=== PATIENT | female | born 1965 | race African-American/Black ===

== ENCOUNTER → 2016-11-22 | Emergency (ER) | payer BC ==
[~2016-11-22] MED LIST: FAMOTIDINE 20 MG/50 ML IVPB 50 ML IVPB ONE; MAG HYDROX/AL HYDROX/SIMETH 30 ML UNIT-DOSE CUP ONE; MAG HYDROX/AL HYDROX/SIMETH 30 ML UNIT-DOSE CUP PO ONE; SUCRALFATE 1 GM TABLET (FP) ONE; SUCRALFATE 1 GM/10 ML UNIT DOSE CUPS PO ONE
[2016-11-22 13:24] VITALS: BP 143/83; PULSE 63; TEMP 98.1; BMI 31.8
--- NOTE | 2016-11-22 14:44 | PDOC ---
History of Present Illness - General Chief Complaint: Chest Pain Stated Complaint: CHEST PAIN Time Seen by Provider: 11/22/16 14:07 History Source: Patient Exam Limitations: No Limitations - History of Present Illness Initial Comments: 11/22/16 14:41 Patient is a 50F with history of gastric reflux here today complaining of chest pain. The pain is located in the superior chest region, both left and right. The pain has been going on for the past 2-3 weeks. It's intermittent, but becoming more frequent the past couple of days. It's not brought on by activity and it's not relieved by rest. It's made worse by inspiration but not palpation. She denies nausea, vomiting, diaphoresis, fevers, chills and shortness of breath. Past History - Past Medical History Allergies/Adverse Reactions: Allergies Allergy/AdvReac Type Severity Reaction Status Date / Time No Known Allergies Allergy Verified 11/22/16 13:20 Home Medications: Ambulatory Orders Omeprazole 20 mg PO DAILY 11/22/16 GI Disorders: Yes (GERD) - Psycho/Social/Smoking Cessation Hx Anxiety: No Suicidal Ideation: No Smoking History: Never smoked Have you smoked in the past 12 months: No Information on smoking cessation initiated: No Hx Alcohol Use: No Drug/Substance Use Hx: No Substance Use Type: None Review of Systems - Review of Systems Constitutional: No: Chills, Fever HEENTM: No: Blurred Vision Respiratory: No: Orthopnea, Shortness of Breath Cardiac (ROS): Yes: Chest Pain ABD/GI: No: Constipated, Diarrhea, Nausea, Vomiting : No: Dysuria Neurological: Yes: Headache. No: Dizziness Endocrine: No: Excessive Sweating *Physical Exam - Vital Signs Last Vital Signs Temp Pulse Resp BP Pulse Ox 98.1 F 63 18 143/83 100 11/22/16 13:21 11/22/16 13:21 11/22/16 13:21 11/22/16 13:21 11/22/16 13:21 - Physical Exam Comments: 11/22/16 14:52 Gen: Well nourished, no acute distress HEENT: Normocephalic, atraumatic CV: RRR, no murmurs rubs or gallops Lungs: Normal work of breathing, clear to auscultation bilaterally Abd: Soft nontender, normal bowel sounds Ext: 2+ pulses in all extremities, no edema Neuro: Alert, oriented, no gross neuro deficits, CN2-12 intact Heart Score/ECG Review - History History: Slightly suspicious - Electrocardiogram EKG: Significant ST-depression - Age Age: 45-65 - Risk Factors Risk Factors Heart Score: Yes Hx Obesity Based on the list above the patient has:: 1-2 risk factors #1 ECG reviewed & interpreted by me at: 14:54 11/22/16 14:54 Normal sinus rhythm, normal axis, T-wave inversions in II and III. No prior EKGs to compare to. ED Treatment Course - LABORATORY CBC & Chemistry Diagram: 11/22/16 14:49 11/22/16 17:20 - ADDITIONAL ORDERS Additional order review: Laboratory Results 11/22/16 11/22/16 11/22/16 17:20 14:49 14:49 INR 1.03 Sodium 142 Cancelled Potassium 4.0 Cancelled Chloride 105 Cancelled Carbon Dioxide 28 Cancelled Anion Gap 9 Cancelled BUN 11 Cancelled Creatinine 0.7 Cancelled Creat Clearance w eGFR > 60 Cancelled Random Glucose 85 Cancelled Calcium 9.3 Cancelled Magnesium Cancelled Total Bilirubin 0.8 Cancelled AST 20 Cancelled ALT 22 Cancelled Alkaline Phosphatase 122 H Cancelled Creatine Kinase 181 Cancelled Creatine Kinase Index < 0.6 CK-MB (CK-2) < 1.000 Troponin I < 0.02 Cancelled Total Protein 7.1 Cancelled Albumin 4.1 Cancelled 11/22/16 14:49 RBC 4.41 MCV 86.5 MCHC 31.8 L RDW 14.2 MPV 10.7 Neutrophils % 47.1 Lymphocytes % 41.4 H Monocytes % 7.0 Eosinophils % 3.5 Basophils % 1.0 - RADIOLOGY Radiology Studies Ordered: Category Date Time Status CHEST PA & LAT [RAD] Stat Radiology 11/22/16 14:41 Taken - Medications Given in the ED: ED Medications Discontinued Medications Generic Name Dose Route Start Last Admin Trade Name Freq PRN Reason Stop Dose Admin Al Hydroxide/Mg Hydroxide 30 ml 11/22/16 14:49 11/22/16 16:00 Mylanta Oral Suspension - PO 11/22/16 14:50 30 ml ONCE ONE Administration Famotidine/Sodium Chloride 50 mls @ 100 mls/hr 11/22/16 14:49 11/22/16 16:00 Pepcid 20 Mg Premixed Ivpb - IVPB 11/22/16 15:18 100 mls/hr ONCE ONE Administration Sucralfate 1 gm 11/22/16 14:50 11/22/16 16:00 Carafate Oral Suspension - PO 11/22/16 14:51 1 gm BID ONE Administration Medical Decision Making - Medical Decision Making 11/22/16 14:55 Patient is a 50F with history of gastric reflux here today complaining of chest pain. Vital signs normal and stable. Differential diagnosis includes: ACS, unstable angina, angina, gastric reflux and others. History sounds atypical, but EKG shows concerning T-wave inversions in II and III. Will order CBC, CMP, CXR, and Trop. Will treat with GI cocktail to see if symptoms improve. 11/22/16 19:22 Symptoms improved with GI cocktail. Second trop pending. Signed out to Dr Puckett to follow up troponin and likely discharge. *DC/Admit/Observation/Transfer Diagnosis at time of Disposition: Chest pain Qualifiers: Chest pain type: unspecified Qualified Code(s): R07.9 - Chest pain, unspecified - Attestations Physician Attestion: 11/22/16 19:23 I, Dr. Claude Olsen, attest that this document has been prepared under my direction and personally reviewed by me in its entirety. I further attest, that it accurately reflects all work, treatment, procedures and medical decision -making performed by me.
[2016-11-22 16:16] LABS: EOSINOPHIL 3.5 % (0-4.5); MCH 27.5 pg (25.7-33.7); MCHC 31.8 g/dl (32.0-36.0); MEAN CELL VOLUME 86.5 fl (80-96); MEAN PLT VOLUME 10.7 fl (7.5-11.1); NEUTROPHILS 47.1 % (42.8-82.8); PLATELET COUNT 223 K/MM3 (134-434); RDW 14.2 % (11.6-15.6); WHITE BLOOD COUNT 6.5 K/mm3 (4.0-10.0)
[2016-11-22 16:28] LABS: INR 1.03 (0.82-1.09); PROTHROMBIN TIME (PATIENT) 11.3 SEC (9.98-11.88)
--- NOTE | 2016-11-22 17:01 | PDOC ---
Attending Attestation - Resident Resident Name: Claude Olsen - ED Attending Attestation I have performed the following: I have examined & evaluated the patient, The case was reviewed & discussed with the resident, I agree w/resident's findings & plan, Exceptions are as noted - HPI HPI: 11/22/16 16:56 50-year-old female with history of acid reflux presents with chest discomfort for 3 weeks. Patient has been coming in several times a day of 1 minute chest discomforts with no radiation or, diaphoresis, short of breath. There is no exertional components or nausea or vomiting or diaphoresis. States that the pain comes and goes. Patient has been ignoring and thought it was gas. Patient' s family history is consistent with a grandmother has cardiac disease in her 80s. Came in to be evaluated. - Physicial Exam PE: 11/22/16 16:59 GENERAL: Awake, alert, and fully oriented, in no acute distress. HEAD: No signs of trauma EYES: PERRLA, EOMI, sclera anicteric, conjunctiva clear ENT: Auricles normal inspection, hearing grossly normal, nares patent, oropharynx clear without exudates. NECK: Normal ROM, supple, no lymphadenopathy, JVD, or masses LUNGS: Breath sounds equal, clear to auscultation bilaterally. No wheezes, and no crackles HEART: Regular rate and rhythm, normal S1 and S2, no murmurs, rubs or gallops ABDOMEN: Soft, nontender, normoactive bowel sounds. No guarding, no rebound. No masses EXTREMITIES: Normal range of motion, no edema. No clubbing or cyanosis. No cords, erythema, or tenderness NEUROLOGICAL: Cranial nerves II through XII grossly intact. Normal speech, normal gait SKIN: Warm, Dry, normal turgor, no rashes or lesions noted. - Medical Decision Making 11/22/16 17:01 The patient's chest pain is very atypical and I suspect unlikely to be acute coronary syndrome at this time. The patient does have an EKG that is changed compared to prior with new T-wave inversions. However, given these findings, we' ll obtain to troponins. We'll consult cardiology for rapid outpatient stress test if they are agreeable. We'll trial GERD medications and reassess. Heart Score/ECG Review - History History: Slightly suspicious - Electrocardiogram EKG: Non specific repolarization disturbance - Age Age: 45-65 - Risk Factors Risk Factors Heart Score: Yes Positive family hx of cardiac disease Based on the list above the patient has:: 1-2 risk factors #1 ECG reviewed & interpreted by me at: 13:35 11/22/16 17:00 NSR 61, LVH, TWI III, avF, TWI V2-V3, Q wave V1-V2, T wave flat V4-V6, QTC 446 msec, no std/nick
[2016-11-22 18:06] LABS: ALBUMIN 4.1 g/dl (3.4-5.0); ANION GAP 9 (8-16); CALCIUM 9.3 mg/dL (8.5-10.1); CO2 28 mmol/L (21-32); CREATININE 0.7 mg/dL (0.55-1.02); GLUCOSE,RANDOM 85 mg/dL (74-106); SGOT/AST 20 U/L (15-37); SGPT/ALT 22 U/L (12-78)
[2016-11-22 18:11] LABS: ALK PHOS 122 U/L (45-117); BILIRUBIN,TOTAL 0.8 mg/dL (0.2-1.0); TOT PROT 7.1 g/dl (6.4-8.2); TROPONIN I < 0.02 ng/ml (0.00-0.05)
--- NOTE | 2016-11-22 19:38 | PDOC ---
*Physical Exam - Vital Signs Last Vital Signs Temp Pulse Resp BP Pulse Ox 98.1 F 63 18 143/83 100 11/22/16 13:21 11/22/16 13:21 11/22/16 13:21 11/22/16 13:21 11/22/16 13:21 <Mayur Kam - Last Filed: 11/22/16 21:18> - Vital Signs Last Vital Signs Temp Pulse Resp BP Pulse Ox 98.1 F 63 18 143/83 100 11/22/16 13:21 11/22/16 13:21 11/22/16 13:21 11/22/16 13:21 11/22/16 13:21 - Physical Exam Comments: 11/22/16 19:32 GENERAL: Awake, alert, and fully oriented, in no acute distress HEAD: No signs of trauma, normocephalic, atraumatic EYES: PERRLA, EOMI, sclera anicteric, conjunctiva clear ENT: Auricles normal inspection, hearing grossly normal, nares patent, oropharynx clear without exudates. Moist mucosa NECK: Normal ROM, supple, no lymphadenopathy, JVD, or masses LUNGS: No distress, speaks full sentences, clear to auscultation bilaterally HEART: Regular rate and rhythm, normal S1 and S2, no murmurs, rubs or gallops, peripheral pulses normal and equal bilaterally. ABDOMEN: Soft, nontender, normoactive bowel sounds. No guarding, no rebound. No masses EXTREMITIES: Normal inspection, Normal range of motion, no edema. No clubbing or cyanosis. NEUROLOGICAL: Cranial nerves II through XII grossly intact. Normal speech, normal gait, no focal sensorimotor deficits SKIN: Warm, Dry, normal turgor, no rashes or lesions noted. <Yaw Puckett - Last Filed: 11/22/16 21:22> ED Treatment Course - LABORATORY CBC & Chemistry Diagram: 11/22/16 14:49 11/22/16 17:20 - ADDITIONAL ORDERS Additional order review: Laboratory Results 11/22/16 11/22/16 11/22/16 20:09 17:20 14:49 INR Sodium 142 Cancelled Potassium 4.0 Cancelled Chloride 105 Cancelled Carbon Dioxide 28 Cancelled Anion Gap 9 Cancelled BUN 11 Cancelled Creatinine 0.7 Cancelled Creat Clearance w eGFR > 60 Cancelled Random Glucose 85 Cancelled Calcium 9.3 Cancelled Magnesium Cancelled Total Bilirubin 0.8 Cancelled AST 20 Cancelled ALT 22 Cancelled Alkaline Phosphatase 122 H Cancelled Creatine Kinase 185 181 Cancelled Creatine Kinase Index < 0.5 < 0.6 CK-MB (CK-2) < 1.000 < 1.000 Troponin I < 0.02 < 0.02 Cancelled Total Protein 7.1 Cancelled Albumin 4.1 Cancelled 11/22/16 14:49 INR 1.03 Sodium Potassium Chloride Carbon Dioxide Anion Gap BUN Creatinine Creat Clearance w eGFR Random Glucose Calcium Magnesium Total Bilirubin AST ALT Alkaline Phosphatase Creatine Kinase Creatine Kinase Index CK-MB (CK-2) Troponin I Total Protein Albumin 11/22/16 14:49 RBC 4.41 MCV 86.5 MCHC 31.8 L RDW 14.2 MPV 10.7 Neutrophils % 47.1 Lymphocytes % 41.4 H Monocytes % 7.0 Eosinophils % 3.5 Basophils % 1.0 - Medications Given in the ED: ED Medications Discontinued Medications Generic Name Dose Route Start Last Admin Trade Name Jamarcusq PRN Reason Stop Dose Admin Al Hydroxide/Mg Hydroxide 30 ml 11/22/16 14:49 11/22/16 16:00 Mylanta Oral Suspension - PO 11/22/16 14:50 30 ml ONCE ONE Administration Famotidine/Sodium Chloride 50 mls @ 100 mls/hr 11/22/16 14:49 11/22/16 16:00 Pepcid 20 Mg Premixed Ivpb - IVPB 11/22/16 15:18 100 mls/hr ONCE ONE Administration Sucralfate 1 gm 11/22/16 14:50 11/22/16 16:00 Carafate Oral Suspension - PO 11/22/16 14:51 1 gm BID ONE Administration <Mayur Kam - Last Filed: 11/22/16 21:18> - LABORATORY CBC & Chemistry Diagram: 11/22/16 14:49 11/22/16 17:20 - ADDITIONAL ORDERS Additional order review: Laboratory Results 11/22/16 11/22/16 11/22/16 17:20 14:49 14:49 INR 1.03 Sodium 142 Cancelled Potassium 4.0 Cancelled Chloride 105 Cancelled Carbon Dioxide 28 Cancelled Anion Gap 9 Cancelled BUN 11 Cancelled Creatinine 0.7 Cancelled Creat Clearance w eGFR > 60 Cancelled Random Glucose 85 Cancelled Calcium 9.3 Cancelled Magnesium Cancelled Total Bilirubin 0.8 Cancelled AST 20 Cancelled ALT 22 Cancelled Alkaline Phosphatase 122 H Cancelled Creatine Kinase 181 Cancelled Creatine Kinase Index < 0.6 CK-MB (CK-2) < 1.000 Troponin I < 0.02 Cancelled Total Protein 7.1 Cancelled Albumin 4.1 Cancelled 11/22/16 14:49 RBC 4.41 MCV 86.5 MCHC 31.8 L RDW 14.2 MPV 10.7 Neutrophils % 47.1 Lymphocytes % 41.4 H Monocytes % 7.0 Eosinophils % 3.5 Basophils % 1.0 - Medications Given in the ED: ED Medications Discontinued Medications Generic Name Dose Route Start Last Admin Trade Name Freq PRN Reason Stop Dose Admin Al Hydroxide/Mg Hydroxide 30 ml 11/22/16 14:49 11/22/16 16:00 Mylanta Oral Suspension - PO 11/22/16 14:50 30 ml ONCE ONE Administration Famotidine/Sodium Chloride 50 mls @ 100 mls/hr 11/22/16 14:49 11/22/16 16:00 Pepcid 20 Mg Premixed Ivpb - IVPB 11/22/16 15:18 100 mls/hr ONCE ONE Administration Sucralfate 1 gm 11/22/16 14:50 11/22/16 16:00 Carafate Oral Suspension - PO 11/22/16 14:51 1 gm BID ONE Administration <Yaw Puckett - Last Filed: 11/22/16 21:22> Progress Note - Progress Note Progress Note: 50 yo female with h/o GERD who presents following atypical susbsternal chest pain. Received check out from previous resident provider. Patient receiving ACS workup. Currently asymptomatic, with h/o previous abnormal EKG (2016) revealing T wave inversion in inferior leads. Currently on 20 mg Omeprazole QD. No h/o prior ACS/ RI. <Yaw Puckett - Last Filed: 11/22/16 21:22> Medical Decision Making - Medical Decision Making 11/22/16 21:18 Discussed results and need for STRESS TEST and CARDIOLOGY CONSULTATION as OUTPATIENT with patient. She understands and will call her primary doctor for a referral in the morning. <Mayur Kam - Last Filed: 11/22/16 21:18> - Medical Decision Making 11/22/16 19:34 50 yo female with h/o reflux who presents with atypical chest pain. Hemodynamically stable and absent abnormal acute changes on EKG or abnormal physical exam. Previous EKG in 2016 revealed T wave inversion in inferior leads. Patient asymptomatic and ED course consist of r/o angina/ACS/RI. Patient has receivwd Ranitidine, Sulcralfate, and Mag Hydrox. Recieved check out from Dr. Olsen. 11/22/16 19:37 CBC, CMP, and Troponin unremarkable. CXR- 11/22/16 19:38 Second Troponin - Negative <Yaw Puckett - Last Filed: 11/22/16 21:22> *DC/Admit/Observation/Transfer - Discharge Dispostion Admit: No <Mayur Kam - Last Filed: 11/22/16 21:18> - Attestations Physician Attestion: 11/22/16 21:21 I, Dr. Yaw Puckett, attest that this document has been prepared under my direction and personally reviewed by me in its entirety. I further attest, that it accurately reflects all work, treatment, procedures and medical decision -making performed by me. <Yaw Puckett - Last Filed: 11/22/16 21:22> Diagnosis at time of Disposition: Chest pain Qualifiers: Chest pain type: unspecified Qualified Code(s): R07.9 - Chest pain, unspecified GE reflux Qualifiers: Esophagitis presence: esophagitis presence not specified Qualified Code(s): K21.9 - Gastro-esophageal reflux disease without esophagitis - Discharge Dispostion Disposition: HOME Condition at time of disposition: Good - Referrals Referrals: Bridger Conteh MD [Staff Physician] - - Patient Instructions Printed Discharge Instructions: DI for Atypical Chest Pain, Heartburn -- Overview, DI for Gastroesophageal Reflux Disease (GERD) Additional Instructions: Mrs Javed- I am so sorry this took so long today..... It is important you follow up with your Primary Doctor so they can order a stress test for you. Also start your Omperazole (Prilosec)R Tomorrow. Return to us if any problems. Best- Dr. Mayur Kam
[2016-11-22 20:49] LABS: TROPONIN I < 0.02 ng/ml (0.00-0.05)
--- NOTE | 2016-11-24 12:10 | EKG ---
Test Reason : Blood Pressure : / mmHG Vent. Rate : 061 BPM Atrial Rate : 061 BPM P-R Int : 164 ms QRS Dur : 088 ms QT Int : 444 ms P-R-T Axes : 048 001 -14 degrees QTc Int : 446 ms NORMAL SINUS RHYTHM MINIMAL VOLTAGE CRITERIA FOR LVH, MAY BE NORMAL VARIANT SEPTAL INFARCT , AGE UNDETERMINED ABNORMAL ECG NO PREVIOUS ECGS AVAILABLE Confirmed by KEITH PAULINO MD ([id number]) on 11/24/2016 12:09:42 PM Referred By: Confirmed By:KEITH PAULINO MD
== END | disposition home or self-care (01) ==
LOC: JER 13:18
PROC: 3E033GC Introduction of Other Therapeutic Substance into Peripheral Vein, Percutaneous Approach (ICD-10-PCS; principal; 2016-11-22)
DX: R07.89 Other chest pain (principal); K21.9 Gastro-esophageal reflux disease without esophagitis
CPT/HCPCS: 36415; 71020-TC; 80053; 82550; 82553; 84484; 85025; 85610; 93005; 93010; 99281-25

== ENCOUNTER 2020-03-28 09:47 | Inpatient (IN) | payer BC ==
[2020-03-28] MEDS ORDERED: FAMOTIDINE 20 MG TABLET PO ONE (11:14)
[2020-03-28] MEDS ORDERED: MAG HYDROX/AL HYDROX/SIMETH -MYLANTA- ORAL SUSPENSION PO ONE (11:14)
[2020-03-28] MEDS ORDERED: SODIUM CHLORIDE 0.9% 500 ML INFUS.BAG IV ONE ×2 (11:14→14:25)
[2020-03-28] MEDS ORDERED: LIDOCAINE VISCOUS 2% ORAL/TOP 20 ML UNIT-DOSE CUP MM ONE (11:14)
[2020-03-28] MEDS ORDERED: LIDOCAINE VISCOUS 2% ORAL/TOP 20 ML UNIT-DOSE CUP ONE (12:14)
[2020-03-28] MEDS ORDERED: FAMOTIDINE 20 MG TABLET ONE (12:15)
[2020-03-28] MEDS ORDERED: MAG HYDROX/AL HYDROX/SIMETH 30 ML UNIT-DOSE CUP ONE (12:15)
[2020-03-28 12:40] LABS: BASO % 0.4 % (0-2.0); EOS % 0.1 % (0-4.5); HEMATOCRIT 39.7 % (32.4-45.2); HEMOGLOBIN 12.7 GM/dL (10.7-15.3); LYMPH % 7.8 % (8-40); MCH 27.7 pg (25.7-33.7); MEAN CELL VOLUME 86.6 fl (80-96); MEAN PLT VOLUME 10.8 fl (7.5-11.1); MONO % 5.4 % (3.8-10.2); NEUT % 86.3 % (42.8-82.8); PLATELET COUNT 266 K/MM3 (134-434); RBC 4.59 M/mm3 (3.60-5.2); RDW 14.6 % (11.6-15.6); WHITE BLOOD COUNT 10.2 K/mm3 (4.0-10.0)
[2020-03-28 12:45] LABS: INR 0.99 (0.83-1.09); PROTHROMBIN TIME (PATIENT) 12.2 SEC (9.7-13.0)
[2020-03-28 12:48] LABS: ACTIVATED PTT 29.6 SECONDS (25.2-36.5)
[2020-03-28 12:57] LABS: CHLORIDE 111 mmol/L (98-107); SODIUM 141 mmol/L (136-145)
[2020-03-28 13:00] LABS: ALBUMIN 4.2 g/dl (3.4-5.0); BLOOD UREA NITROGEN 13.3 mg/dL (7-18); CALCIUM 9.2 mg/dL (8.5-10.1); CO2 25 mmol/L (21-32); GLUCOSE,RANDOM 128 mg/dL (74-106); LIPASE 128 U/L (73-393)
[2020-03-28 13:03] LABS: CREATININE 0.9 mg/dL (0.55-1.3); SGOT/AST 91 U/L (15-37)
[2020-03-28 13:05] LABS: BILIRUBIN,TOTAL 0.4 mg/dL (0.2-1); TOT PROT 8.3 g/dl (6.4-8.2)
[2020-03-28 13:06] LABS: ALK PHOS 123 U/L (45-117)
[2020-03-28 13:22] LABS: URINE APPEARANCE CLOUDY; URINE BILIRUBIN NEGATIVE (NEGATIVE); URINE COLOR YELLOW; URINE GLUCOSE (UA) NEGATIVE (NEGATIVE); URINE KETONE NEGATIVE (NEGATIVE); URINE LEUK ESTERASE NEGATIVE (NEGATIVE); URINE NITRITE NEGATIVE (NEGATIVE); URINE PROTEIN NEGATIVE (NEGATIVE); URINE UROBILINOGEN 0.2 mg/dL (0.2-1.0)
[2020-03-28 13:24] LABS: ANION GAP 5 MMOL/L (8-16); SGPT/ALT 48 U/L (13-61)
[2020-03-28 13:29] LABS: ANISOCYTOSIS 0; MACROCYTOSIS 0; PLATELET ESTIMATE NORMAL
[2020-03-28 13:31] LABS: POTASSIUM 7.8 mmol/L (3.5-5.1)
[2020-03-28] MEDS ORDERED: ACETAMINOPHEN 1000 MG/100 ML VIAL (NON FORMULARY) IVPB ONE (14:21)
[2020-03-28] MEDS ORDERED: ACETAMINOPHEN INJECTION 100 ML IVPB ONE ×3 (14:49→21:15)
[2020-03-28] MEDS ORDERED: DEXTROSE 5%-0.45% SALINE 1,000 ML IV SCH (17:30)
[2020-03-28] MEDS: ACETAMINOPHEN 1000 MG/100 ML VIAL (NON FORMULARY) IVPB PRN (19:32)
[2020-03-28] MEDS ORDERED: CEFTRIAXONE 1 GM/50 ML BAG ONE (21:15)
[2020-03-28] MEDS: SODIUM CHLORIDE 1,000 ML IV SCH (21:32)
[2020-03-28] MEDS: CEFTRIAXONE 1 GM in DEXTROSE 5%-WATER - 50 ML IVPB SCH (21:32)
[2020-03-28 21:47] LABS: POTASSIUM 4.1 mmol/L (3.5-5.1)
[2020-03-28 21:48] LABS: CALCIUM 8.8 mg/dL (8.5-10.1)
[2020-03-28 21:49] LABS: ALBUMIN 4.1 g/dl (3.4-5.0); BLOOD UREA NITROGEN 8.8 mg/dL (7-18)
[2020-03-28 21:52] LABS: CREATININE 0.6 mg/dL (0.55-1.3)
[2020-03-28 21:53] LABS: BILIRUBIN,TOTAL 0.4 mg/dL (0.2-1); TOT PROT 7.3 g/dl (6.4-8.2)
[2020-03-29] MEDS: ACETAMINOPHEN 1000 MG/100 ML VIAL (NON FORMULARY) IVPB PRN ×2 (02:22→11:47)
[2020-03-29 03:45] VITALS: BMI 38.1
[2020-03-29 08:23] LABS: BASO % 0.4 % (0-2.0); EOS % 2.1 % (0-4.5); HEMATOCRIT 32.8 % (32.4-45.2); HEMOGLOBIN 10.6 GM/dL (10.7-15.3); LYMPH % 23.7 % (8-40); MCH 28.2 pg (25.7-33.7); MCHC 32.4 g/dl (32.0-36.0); MEAN CELL VOLUME 87.1 fl (80-96); MEAN PLT VOLUME 10.9 fl (7.5-11.1); MONO % 9.9 % (3.8-10.2); NEUT % 63.9 % (42.8-82.8); PLATELET COUNT 203 K/MM3 (134-434); RBC 3.77 M/mm3 (3.60-5.2); RDW 14.4 % (11.6-15.6)
[2020-03-29 08:36] LABS: CHLORIDE 114 mmol/L (98-107); POTASSIUM 3.9 mmol/L (3.5-5.1); SODIUM 144 mmol/L (136-145)
[2020-03-29 08:39] LABS: ALBUMIN 3.3 g/dl (3.4-5.0); BLOOD UREA NITROGEN 7.2 mg/dL (7-18)
[2020-03-29 08:40] LABS: CALCIUM 8.1 mg/dL (8.5-10.1); MAGNESIUM 2.2 mg/dL (1.8-2.4)
[2020-03-29 08:41] LABS: ANION GAP 4 MMOL/L (8-16); CO2 26 mmol/L (21-32); GLUCOSE,RANDOM 134 mg/dL (74-106)
[2020-03-29 08:42] LABS: CREATININE 0.7 mg/dL (0.55-1.3); SGOT/AST 18 U/L (15-37); SGPT/ALT 29 U/L (13-61)
[2020-03-29 08:43] LABS: PHOSPHOROUS 3.1 mg/dL (2.5-4.9)
[2020-03-29 08:44] LABS: BILIRUBIN,TOTAL 0.4 mg/dL (0.2-1); TOT PROT 6.1 g/dl (6.4-8.2)
[2020-03-29 08:45] LABS: ALK PHOS 97 U/L (45-117)
[2020-03-29] MEDS: PANTOPRAZOLE SODIUM 40 MG VIAL IVPUSH SCH (09:06)
[2020-03-29] MEDS: SODIUM CHLORIDE 1,000 ML IV SCH (09:06)
[2020-03-29] MEDS ORDERED: cefTRIAXone SODIUM 1 GM VIAL ONE (10:53)
[2020-03-29] MEDS ORDERED: DEXTROSE 5%-WATER - 50 ML IVPB ONE (10:53)
[2020-03-29] MEDS: CEFTRIAXONE 1 GM in DEXTROSE 5%-WATER - 50 ML IVPB SCH (10:54)
[2020-03-29 19:00] LABS: HEMATOCRIT 35.9 % (32.4-45.2); HEMOGLOBIN 11.4 GM/dL (10.7-15.3); MCH 28.5 pg (25.7-33.7); MCHC 31.8 g/dl (32.0-36.0); MEAN CELL VOLUME 89.5 fl (80-96); MEAN PLT VOLUME 10.9 fl (7.5-11.1); PLATELET COUNT 196 K/MM3 (134-434); RBC 4.01 M/mm3 (3.60-5.2); RDW 14.6 % (11.6-15.6); WHITE BLOOD COUNT 8.5 K/mm3 (4.0-10.0)
[2020-03-30] MEDS: ACETAMINOPHEN 1000 MG/100 ML VIAL (NON FORMULARY) IVPB PRN ×2 (00:03→07:49)
[2020-03-30] MEDS: SODIUM CHLORIDE 1,000 ML IV SCH ×2 (00:08→07:50)
[2020-03-30 07:04] LABS: HEMATOCRIT 31.8 % (32.4-45.2); HEMOGLOBIN 10.1 GM/dL (10.7-15.3); MCH 27.7 pg (25.7-33.7); MCHC 31.8 g/dl (32.0-36.0); MEAN CELL VOLUME 87.3 fl (80-96); MEAN PLT VOLUME 10.2 fl (7.5-11.1); PLATELET COUNT 198 K/MM3 (134-434); RBC 3.64 M/mm3 (3.60-5.2)
[2020-03-30 08:05] LABS: POTASSIUM 3.8 mmol/L (3.5-5.1)
[2020-03-30 08:35] LABS: ALBUMIN 3.3 g/dl (3.4-5.0); CALCIUM 8.1 mg/dL (8.5-10.1); CREATININE 0.7 mg/dL (0.55-1.3); MAGNESIUM 2.2 mg/dL (1.8-2.4)
[2020-03-30 08:39] LABS: BILIRUBIN,TOTAL 0.4 mg/dL (0.2-1); PHOSPHOROUS 3.4 mg/dL (2.5-4.9); TOT PROT 5.8 g/dl (6.4-8.2)
[2020-03-30] MEDS: PANTOPRAZOLE SODIUM 40 MG VIAL IVPUSH SCH (09:11)
[2020-03-30] MEDS ORDERED: cefTRIAXone SODIUM 1 GM VIAL ONE (10:22)
[2020-03-30] MEDS ORDERED: DEXTROSE 5%-WATER - 50 ML IVPB ONE (10:22)
[2020-03-30] MEDS: CEFTRIAXONE 1 GM in DEXTROSE 5%-WATER - 50 ML IVPB SCH (10:24)
[2020-03-30] MEDS ORDERED: SODIUM CHLORIDE 0.45% 1,000 ML IV SCH (16:15)
[2020-03-30] MEDS ORDERED: ACETAMINOPHEN 500 MG TABLET (FP) PO PRN (21:52)
[2020-03-31 08:28] LABS: POTASSIUM 3.9 mmol/L (3.5-5.1)
[2020-03-31 08:31] LABS: CALCIUM 8.2 mg/dL (8.5-10.1)
[2020-03-31 08:32] LABS: BLOOD UREA NITROGEN 6.4 mg/dL (7-18)
[2020-03-31 08:35] LABS: CREATININE 0.7 mg/dL (0.55-1.3)
[2020-03-31] MEDS: PANTOPRAZOLE SODIUM 40 MG VIAL IVPUSH SCH (11:06)
[2020-03-31] MEDS ORDERED: cefTRIAXone SODIUM 1 GM VIAL ONE (12:02)
[2020-03-31] MEDS ORDERED: DEXTROSE 5%-WATER - 50 ML IVPB ONE (12:03)
[2020-03-31] MEDS: CEFTRIAXONE 1 GM in DEXTROSE 5%-WATER - 50 ML IVPB SCH (12:42)
[2020-03-31 15:34] VITALS: BP 150/79; PULSE 64; TEMP 98.8
== END 2020-03-31 16:58 | disposition home health service (06) | DRG 392 ==
LOC: JER 09:47 → JERBED 15:58 → J8W 22:23
PROVIDERS: ATTEND Internal Medicine
DX: A09 Infectious gastroenteritis and colitis, unspecified (principal); K92.1 Melena; K21.9 Gastro-esophageal reflux disease without esophagitis; K76.0 Fatty (change of) liver, not elsewhere classified; R82.71 Bacteriuria; I10 Essential (primary) hypertension; R16.0 Hepatomegaly, not elsewhere classified; E66.9 Obesity, unspecified; Z68.38 Body mass index [BMI] 38.0-38.9, adult; Z79.1 Long term (current) use of non-steroidal anti-inflammatories (NSAID)
CPT/HCPCS: 36415; 71045-TC-FY; 74177-TC; 80048; 80053; 80061; 81003; 82272; 82550; 82553; 83036; 83605; 83690; 83721; 83735; 84100; 84443; 84484; 85025; 85027; 85610; 85730; 87045; 87046; 87077; 87086; 87177; 87205; 87209; 87324; 87449; 93005; 93010; 93306-TC; 97116-GP; 99285-25; C9803; J0131; Q9967; U0003

== ENCOUNTER 2021-05-09 06:09 | Emergency (ER) | payer BC ==
[2021-05-09 06:41] VITALS: BP 139/52; PULSE 58; TEMP 97.5; BMI 36.2
[2021-05-09] MEDS ORDERED: KETOROLAC TROMETHAMINE 30 MG/1 ML VIAL IM ONE (07:31)
[2021-05-09] MEDS ORDERED: METHOCARBAMOL 500 MG TABLET PO ONE (07:32)
[2021-05-09] MEDS ORDERED: LIDOCAINE 5% TOPICAL PATCH TP ONE (07:32)
[2021-05-09] MEDS ORDERED: METHOCARBAMOL 500 MG TABLET ONE (07:35)
[2021-05-09] MEDS ORDERED: LIDOCAINE 5% TOPICAL PATCH ONE (07:36)
[2021-05-09] MEDS ORDERED: KETOROLAC TROMETHAMINE 30 MG/1 ML VIAL ONE (07:36)
[2021-05-09] MEDS ORDERED: LIDOCAINE PATCH REMOVAL MC SCH (22:00)
== END 2021-05-09 09:15 | disposition home or self-care (01) ==
LOC: JER 06:09
PROC: 3E0233Z Introduction of Anti-inflammatory into Muscle, Percutaneous Approach (ICD-10-PCS; principal; 2021-05-09)
DX: M54.41 Lumbago with sciatica, right side (principal)
CPT/HCPCS: 99283-25

== ENCOUNTER 2021-09-16 09:28 | Day surgery (SDC) | payer BC ==
[2021-09-16 10:04] VITALS: BMI 35.8
[2021-09-16] MEDS ORDERED: PROPOFOL 20 ML ONE ×3 (11:28)
[2021-09-16 13:04] VITALS: TEMP 98.2
[2021-09-16 13:08] VITALS: BP 136/69; PULSE 66
== END 2021-09-16 13:05 | disposition home or self-care (01) ==
LOC: FASU-ENDO 09:28
PROVIDERS: ATTEND Internal Medicine Gastroenterology
PROC: 0DB68ZX Excision of Stomach, Via Natural or Artificial Opening Endoscopic, Diagnostic (ICD-10-PCS; 2021-09-16)
PROC: 0DB48ZX Excision of Esophagogastric Junction, Via Natural or Artificial Opening Endoscopic, Diagnostic (ICD-10-PCS; 2021-09-16)
PROC: 0DB98ZX Excision of Duodenum, Via Natural or Artificial Opening Endoscopic, Diagnostic (ICD-10-PCS; principal; 2021-09-16 11:48)
DX: K29.50 Unspecified chronic gastritis without bleeding (principal); K21.00 Gastro-esophageal reflux disease with esophagitis, without bleeding; R10.13 Epigastric pain
CPT/HCPCS: 88305-TC; 88342-TC

== ENCOUNTER 2022-01-29 02:53 | Emergency (ER) | payer BC ==
[2022-01-29 03:24] VITALS: RESP 20; BMI 36.6
[2022-01-29] MEDS ORDERED: ACETAMINOPHEN 1000 MG/100 ML BAG IVPB ONE (04:33)
[2022-01-29] MEDS ORDERED: SODIUM CHLORIDE 0.9% 500 ML INFUS.BAG IV ONE (04:33)
[2022-01-29] MEDS ORDERED: ACETAMINOPHEN INJECTION 100 ML IVPB ONE (04:34)
[2022-01-29 06:32] LABS: BASO % 0.6 % (0-2.0); EOS % 2.5 % (0-4.5); HEMATOCRIT 37.9 % (32.4-45.2); HEMOGLOBIN 12.3 GM/dL (10.7-15.3); LYMPH % 20.3 % (8-40); MCH 28.5 pg (25.7-33.7); MCHC 32.6 g/dl (32.0-36.0); MEAN CELL VOLUME 87.3 fl (80-96); MEAN PLT VOLUME 9.9 fl (7.5-11.1); MONO % 7.7 % (3.8-10.2); NEUT % 68.9 % (42.8-82.8); PLATELET COUNT 264 10^3/uL (134-434); RBC 4.33 M/mm3 (3.60-5.2); RDW 13.3 % (11.6-15.6); WHITE BLOOD COUNT 10.4 K/mm3 (4.0-10.0)
[2022-01-29 06:55] LABS: CALCIUM 8.8 mg/dL (8.5-10.1)
[2022-01-29 06:56] LABS: BLOOD UREA NITROGEN 12.7 mg/dL (7-18); MAGNESIUM 2.3 mg/dL (1.8-2.4)
[2022-01-29 06:58] LABS: CREATININE 0.7 mg/dL (0.55-1.3)
[2022-01-29 07:00] LABS: BILIRUBIN,TOTAL 0.7 mg/dL (0.2-1); TOT PROT 7.4 g/dl (6.4-8.2)
[2022-01-29 07:09] VITALS: BP 99/56; PULSE 66; TEMP 98.6
[2022-01-29 08:56] LABS: INR 1.08 (0.83-1.09); PROTHROMBIN TIME (PATIENT) 12.4 SEC (9.7-13.0)
[2022-01-29 11:01] LABS: EPI CELLS 2 /uL (0-25.1); HYALINE CASTS 0 /uL (0-3.1); PH,URINE 5.5 (5.0-8.0); URINE APPEARANCE CLEAR; URINE BACTERIA 2 /uL (0-1359); URINE BILIRUBIN NEGATIVE (NEGATIVE); URINE COLOR YELLOW; URINE GLUCOSE (UA) NEGATIVE (NEGATIVE); URINE KETONE NEGATIVE (NEGATIVE); URINE LEUK ESTERASE NEGATIVE (NEGATIVE); URINE NITRITE NEGATIVE (NEGATIVE); URINE PROTEIN NEGATIVE (NEGATIVE); URINE RBC 1 /uL (0-23.9); URINE UROBILINOGEN 0.2 mg/dL (0.2-1.0); URINE WBC 1 /uL (0-25.8)
[2022-01-29] MEDS ORDERED: CIPROFLOXACIN 500 MG TABLET (RESTRICTED TO ID) PO ONE (11:07)
[2022-01-29] MEDS ORDERED: metroNIDAZOLE 250 MG TABLET PO ONE (11:07)
[2022-01-29] MEDS ORDERED: metroNIDAZOLE 250 MG TABLET ONE (11:19)
== END 2022-01-29 11:33 | disposition home or self-care (01) ==
LOC: JER 02:53
PROC: 3E0333Z Introduction of Anti-inflammatory into Peripheral Vein, Percutaneous Approach (ICD-10-PCS; principal; 2022-01-29)
DX: K52.9 Noninfective gastroenteritis and colitis, unspecified (principal)
CPT/HCPCS: 36415; 74177-TC; 80053; 81003; 83735; 84484; 85025; 85610; 85730; 86850; 86900; 86901; 87086; 93005; 93010; 99285-25; Q9967

== ENCOUNTER 2022-06-30 10:51 | Day surgery (SDC) | payer BC ==
[2022-06-30 11:11] VITALS: BMI 36.6
[2022-06-30] MEDS ORDERED: LIDOCAINE HCL/PF 2% SDV 5ML VIAL ONE (11:50)
[2022-06-30 12:16] VITALS: TEMP 98
[2022-06-30 12:33] VITALS: RESP 18
[2022-06-30 12:34] VITALS: BP 126/78; PULSE 65
== END 2022-06-30 12:42 | disposition home or self-care (01) ==
LOC: FASU-ENDO 10:51
PROVIDERS: ATTEND Internal Medicine Gastroenterology
PROC: 0DJD8ZZ Inspection of Lower Intestinal Tract, Via Natural or Artificial Opening Endoscopic (ICD-10-PCS; principal; 2022-06-30 11:52)
DX: Z12.11 Encounter for screening for malignant neoplasm of colon (principal); K57.30 Diverticulosis of large intestine without perforation or abscess without bleeding; K64.1 Second degree hemorrhoids

== ENCOUNTER 2024-02-20 14:31 | Emergency (ER) | payer BC ==
[2024-02-20 14:35] VITALS: BP 170/81; PULSE 79; RESP 18; TEMP 97.6; BMI 34.4
[2024-02-20] MEDS ORDERED: ACETAMINOPHEN 500 MG TABLET (FP) ONE (15:08)
[2024-02-20] MEDS ORDERED: IBUPROFEN 600 MG TABLET (FP) PO ONE (15:08)
[2024-02-20] MEDS: IBUPROFEN 600 MG TABLET (FP) PO ONE (15:15)
[2024-02-20] MEDS: ACETAMINOPHEN 500 MG TABLET (FP) PO ONE (15:15)
== END 2024-02-20 16:10 | disposition home or self-care (01) ==
LOC: JERFT 14:31
DX: S93.402A Sprain of unspecified ligament of left ankle, initial encounter (principal); W10.1XXA Fall (on)(from) sidewalk curb, initial encounter; Y93.01 Activity, walking, marching and hiking
CPT/HCPCS: 73610-TC-LT-FY; 73630-TC-LT; 99283-25

== ENCOUNTER 2024-07-11 08:38 | Day surgery (SDC) | payer BC ==
[2024-07-06 10:23] VITALS: BMI 35.1
[2024-07-11 12:52] VITALS: BP 131/74; PULSE 79; RESP 18; TEMP 98
== END 2024-07-11 12:00 | disposition home or self-care (01) ==
LOC: FASU-ENDO 08:38
PROVIDERS: ATTEND Internal Medicine Gastroenterology
PROC: 0DB68ZX Excision of Stomach, Via Natural or Artificial Opening Endoscopic, Diagnostic (ICD-10-PCS; 2024-07-11)
PROC: 0DB48ZX Excision of Esophagogastric Junction, Via Natural or Artificial Opening Endoscopic, Diagnostic (ICD-10-PCS; 2024-07-11)
PROC: 0DB98ZX Excision of Duodenum, Via Natural or Artificial Opening Endoscopic, Diagnostic (ICD-10-PCS; principal; 2024-07-11 10:43)
DX: K29.50 Unspecified chronic gastritis without bleeding (principal); K20.90 Esophagitis, unspecified without bleeding; R10.13 Epigastric pain
CPT/HCPCS: 88305-TC; 88342-TC